=== PATIENT | male | born 1965 | race Caucasian/White ===

== ENCOUNTER 2018-08-25 18:35 | Inpatient (IN) ==
[2018-08-25] MEDS ORDERED: 0.9 % Sodium Chloride 1,000 ML IVC ONE ×2 (19:02→21:11)
--- NOTE | 2018-08-25 19:20 | Emergency Department Note ---
Disposition Clinical Impression: Pulmonary embolism Qualifiers: Pulmonary embolism type: other Chronicity: unspecified Acute cor pulmonale presence: without acute cor pulmonale Qualified Code(s): I26.99 - Other pulmonary embolism without acute cor pulmonale Disposition: Admitted As Inpatient Condition: Good Time of Disposition: 21:31 General Adult HPI - General Chief complaint: ED Shortness of Breath/Dyspnea Stated complaint: "lower chest pain" Time Seen by Provider: 08/25/18 18:47 Source: patient Limitations: no limitations Nursing Notes Reviewed: Yes Vital Signs Reviewed: Yes - History of Present Illness HPI Narrative: 53 year old male presents for "chest cold". Patient states he started getting a cold over 2 weeks ago. Complains of cough productive of sputum for 1.5 weeks, states it alternatively clear, brown, green and bloody. Patient reports sputum sometimes bloody because he has thin nasal membrane that often bleeds and blood tracks down to back of throat. States that he's had cough and phlegm for years but it is more persistent now with the cold. Patient states that last night he started having midback pain. States today, he started having bilateral low rib pain with deep breathing or coughing. He is taking cough drops. States he's not taking NSAIDS or tylenol because he doesn't have pain. Reports that he feels a little better today bc the cough drops and walking improved the chest congestion. States chest congestion worsens with inactivity. Describes feeling heavy in his chest from chest congestion. Admits shortness of breath when coughing or when suppressing a cough. Has trouble sleeping due to coughing. Reports fever, temperature at home was 100.3 before coming to ED. Admits nasal congestion. Denies abdominal pain, nausea/vomiting, diarrhea/constipation, runny nose, sore throat, ear pain, facial pain, headache. Had inguinal hernia surgery 2 weeks ago. Reports medical history of HTN, HLD, and BPH. No history of COPD. Never smoker. Alcohol- 2 drinks a week. Denies luz maria gs. Did not get flu shot this year. Pain Scale: 5 - Related Data Home Medications Medication Instructions Recorded Confirmed Acetaminophen [Tylenol] 500 mg PO Q6HR PRN 08/13/18 08/13/18 Atorvastatin [Lipitor] 10 mg PO HS 08/13/18 08/13/18 Glucosamine HCl/Chondr Grace A Na 1 tab PO DAILY 08/13/18 08/13/18 [[facility] Glucosamine-Chondr Tablet] Lisinopril [Zestril] 10 mg PO DAILY 08/13/18 08/13/18 Previous Rx's Medication Instructions Recorded HYDROcodone/Acet 5/325 mg [[place] 1 tab PO Q4H PRN 5 Days #20 tab 08/13/18 5-325 mg] Allergies Allergy/AdvReac Type Severity Reaction Status Date / Time No Known Allergies Allergy Verified 08/13/18 07:23 All systems ED: reviewed and negative except as stated. Constitutional: Reports: fever. Denies: chills Eyes: Denies: eye pain, eye discharge ENT ED: Denies: ear pain, throat pain Cardiovascular: Reports: chest pain. Denies: palpitations Respiratory: Reports: cough, dyspnea Gastrointestinal: Denies: abdominal pain, nausea Genitourinary: Reports: dysuria. Denies: urgency Musculoskeletal: Reports: back pain. Denies: neck pain Integumentary: Denies: rash, abrasion Neurological: Denies: headache, weakness Past Medical History - Past Medical History Attestation: Yes The following information was validated with the patient. Medical history: Reports: hypertension, kidney stones Psychiatric history: Reports: no psych history - Social History Smoking Status: Never smoker Smokeless Tobacco Status: No Alcohol use: Reports: occasionally Drug use: Reports: none Physical Exam - General Limitations: no limitations General appearance: alert, in no apparent distress - Head Head exam: atraumatic, normocephalic - Eye Eye exam: Present: PERRL, EOMI - ENT ENT exam: normal oropharynx, mucous membranes moist, TM's normal bilaterally, normal external ear exam - Neck Neck exam: Present: normal inspection, full ROM, trachea midline. Absent: lymphadenopathy - Chest Chest inspection: Present: normal inspection. Absent: tenderness (Chest nontender. Lower ribs mildly tender to palpation bilaterally. ) - Respiratory Respiratory exam: Present: normal lung sounds bilaterally. Absent: respiratory distress - Cardiovascular Cardiovascular exam: Present: regular rate, normal rhythm - Abdominal Exam Abdominal exam: Present: soft, normal bowel sounds, other (laparoscopic incision sites are clean, dry and intact. ). Absent: Non-Tender, distention, guarding, rebound, rigidity - Extremities Exam Extremities exam: Present: normal inspection. Absent: tenderness, pedal edema, joint swelling - Back Exam Back exam: Present: normal inspection, tenderness (mild right lumbar tenderness), muscle spasm (right lumbar ) - Neurological Exam Neurological exam: Present: alert, oriented X3 - Psychiatric Psychiatric exam: Present: normal affect, normal mood - Skin Skin exam: Present: warm, dry, intact, normal color Course Course Narrative: 53 year old male with history of chronic cough and sputum production presents for worsened productive cough and "chest congestion". States sputum is sometimes clear, brown, green, or bloody. Complains of heavy chest, midback pain, and pl euritic lower rib pain. Patient recently had surgery. Patient is alert and oriented. Patient is afebrile and tachycardic. Patient is not in respiratory distress. Lungs have good air flow and are clear to auscultation. ENT exam was normal. Lower ribs mildly tender to palpation. Will do cardiac workup. Will check D-dimer. Will provide IVF for tachycardia. Will provide toradol for discomfort. - Reevaluation(s) Reevaluation #1: EKG shows no acute ischemic changes. CBC shows elevated WBC at 15 with neutrophilic predominance. D-dimer elevated at 1758. Will check CTA chest. CXR shows opacities in left basilar and retrocardiac, concerning for pneumonia. Will check lactic acid. Will obtain blood cultures and provide empiric antibiotic therapy with rocephin and zithromax. Time: 20:24 Reevaluation #2: Lactic acid is normal. Checking on patient at 21:14, patient states that pain is improved to 3/10. Tachycardia is resolved. Heart rate is 89. CTA chest shows bilateral lower lobe pulmonary embolus. No right heart strain. Spoke with hospitalist Dr. Vela who recommended starting heparin drip and agreed to admit. Discussed results with patient. Patient and family voiced understanding and a grees with admission. Time: 21:26 Vital Signs Temperature 98.9 F 08/25/18 18:39 Pulse Rate 114 08/25/18 18:39 Respiratory Rate 20 08/25/18 18:39 Blood Pressure 151/71 08/25/18 18:39 O2 Sat by Pulse Oximetry 95 08/25/18 18:39 Temperature 98.9 F 08/25/18 18:57 Pulse Rate 114 08/25/18 18:57 Respiratory Rate 20 08/25/18 18:57 Blood Pressure 151/71 08/25/18 18:57 O2 Sat by Pulse Oximetry 95 08/25/18 18:57 Oxygen Delivery Oxygen Delivery Room Air Medical Decision Making - MDM Narrative Medical decision making narrative: Chest X-Ray 08/25/18 19:02 IMPRESSION: 1. Left basilar/retrocardiac opacities which are concerning for pneumonia given patient history. 2. Mild opacities at the right lung base likely reflect atelectasis. D/ / Merlin Garcia MD / Merlin Garcia MD Interpreting Provider: Merlin Garcia MD - Medical Records Medical records reviewed: Yes I reviewed the patient's medical records. - Lab Data Lab results reviewed: Yes I reviewed the patient's lab results. Result diagrams: 08/25/18 19:02 08/25/18 19:02 Lab Results 08/25/18 08/25/18 08/25/18 Range/Units 19:02 19:02 19:18 WBC 15.0 H (4.3-11.1) K/mcL RBC 4.94 (4.19-5.50) M/mcL Hgb 15.1 (12.9-16.9) g/dL Hct 44.0 (37.5-50.1) % MCV 89.1 (83.0-100.0) fL MCH 30.6 (28.0-33.3) pg MCHC 34.3 (31.6-35.5) g/dL RDW 12.3 (11.5-14.5) % Plt Count 269 (140-400) K/mcL MPV 9.0 L (9.4-12.4) fL Immature Gran % 0.3 (0-4) % Seg Neutrophils % 81.0 % Lymphocytes % 9.7 % Monocytes % 7.8 % Eosinophils % 0.9 % Basophils % 0.3 % Neutrophils # 12.2 H (1.6-8.9) K/mcL Lymphocytes # 1.5 (0.6-4.6) K/mcL Monocytes # 1.2 (0.0-1.3) K/mcL Eosinophils # 0.1 (0.0-0.6) K/mcL Basophils # 0.0 (0.0-0.2) K/mcL D-Dimer 1758 H (0-500) ng/mLFEU Sodium 137 (136-145) mEq/L Potassium 3.6 (3.5-5.1) mEq/L Chloride 105 (98-107) mEq/L Carbon Dioxide 24 (23-29) mEq/L BUN 14 (6-20) mg/dL Creatinine 0.87 (0.70-1.30) mg/dL Est GFR ( Amer) > 60 (> 60) Est GFR (Non-Af Amer) > 60 (> 60) BUN/Creatinine Ratio 16 (6-26) Glucose 129 H (70-105) mg/dL Calculated Osmolality 286 (280-300) Lactic Acid (0.5-2.2) mmol/L Calcium 9.4 (8.6-10.3) mg/dL Troponin I < 0.03 (< 0.04) ng/mL 08/25/18 Range/Units 20:16 WBC (4.3-11.1) K/mcL RBC (4.19-5.50) M/mcL Hgb (12.9-16.9) g/dL Hct (37.5-50.1) % MCV (83.0-100.0) fL MCH (28.0-33.3) pg MCHC (31.6-35.5) g/dL RDW (11.5-14.5) % Plt Count (140-400) K/mcL MPV (9.4-12.4) fL Immature Gran % (0-4) % Seg Neutrophils % % Lymphocytes % % Monocytes % % Eosinophils % % Basophils % % Neutrophils # (1.6-8.9) K/mcL Lymphocytes # (0.6-4.6) K/mcL Monocytes # (0.0-1.3) K/mcL Eosinophils # (0.0-0.6) K/mcL Basophils # (0.0-0.2) K/mcL D-Dimer (0-500) ng/mLFEU Sodium (136-145) mEq/L Potassium (3.5-5.1) mEq/L Chloride (98-107) mEq/L Carbon Dioxide (23-29) mEq/L BUN (6-20) mg/dL Creatinine (0.70-1.30) mg/dL Est GFR ( Amer) (> 60) Est GFR (Non-Af Amer) (> 60) BUN/Creatinine Ratio (6-26) Glucose (70-105) mg/dL Calculated Osmolality (280-300) Lactic Acid 1.2 (0.5-2.2) mmol/L Calcium (8.6-10.3) mg/dL Troponin I (< 0.04) ng/mL - Radiology Data Radiology results reviewed: Yes I reviewed the patient's radiology results. - EKG Data EKG #1 EKG attestation: Yes I reviewed and interpreted this EKG. EKG results narrative: EKG 08/15/18 19:12. Sinus rhythm. Heart rate 101. No ST segment elevation or depression. No significant change from prior EKG 08/06/18. Critical Care Time Critical Care Time: Yes Total Critical Care Time: 35 Attestation: Critical care time 35 minutes managing patient's bilateral pulmonary emboli. Attestation Statement - Attestation Attestation: Patient was seen with resident physician. I reviewed the history, physical, assessment and plan, and agree with the findings. I also personally evaluated this patient and had [id number] time with this patient. 53-year-old male presents to the emergency department with chief complaint of cough and chest pain. Patient has had a cough and congestion for the last week or so. Progressively is gotten worse. He is attempted to take a cough medicine because urinary retention. I therefore is unable to take that. He says he has had some fevers at home as well. The chest pain is a sharp pain generally with deep inspiration or with cough and radiates to the back on the lower left side. Does not have a cardiac history. is concerned he may have COPD though he is not a smoker. Review systems as above remainder negative. Physical exam vital signs are stable he is afebrile. ENT is unremarkable. Heart regular rhythm and rate. Lungs clear. Adamant soft nontender. Chest wall stable nontender. Patient does have some mild tenderness palpation the left lower back. There is mild muscle spasm in that area. Extremities are unremarkable. Neurologically intact. Skin no rashes. Psych normal. ED course. We will check a chest x-ray EKG and some basic labs just to ensure there is no abnormalities in that regard causing his complaints. I think at the end of the day he probably has a bronchitis or pneumonia and some chest wall pain secondary to the coughing for an extended period of time. If everything comes back okay anticipate we will be able to disposition to home. Additionally because little atypical check a d-dimer. That is positive will get a CTA of the chest. If negative effectively ruling out a PE. Hemodynamically he remained stable in the emergency department, he got a shot of Toradol to help with his discomfort. D-dimer was positive which prompted a CTA of the chest. Chest x- ray seems to show an effusion or at least bilateral pneumonia. CTA of the chest however was read by radiology as bilateral PEs without evidence of cardiac strain. Based on these findings, the patient was started on oxygen therapy. Heparinized, and the hospitalist service was notified. They agreed to accept the patient for admission. Hemodynamically he was stable while in the emergency department. He will however require anticoagulation for his PEs. Critical care time was 35 minutes. Agree with resident physician assessment and plan.
[2018-08-25] MEDS ORDERED: Ketorolac 60 MG/2 ML VIAL IM ONE (19:24)
[2018-08-25] MEDS ORDERED: Ketorolac 30 MG/ML VIAL IVP ONE (19:25)
[2018-08-25 19:38] LABS: Basophils % 0.3 %; Eosinophils # 0.1 K/mcL (0.0-0.6); Eosinophils % 0.9 %; Hemoglobin 15.1 g/dL (12.9-16.9); Immature Granulocytes % 0.3 % (0-4); Lymphocytes # 1.5 K/mcL (0.6-4.6); Lymphocytes % 9.7 %; Mean Corpuscular HGB Conc 34.3 g/dL (31.6-35.5); Mean Corpuscular Hemoglobin 30.6 pg (28.0-33.3); Mean Corpuscular Volume 89.1 fL (83.0-100.0); Monocytes # 1.2 K/mcL (0.0-1.3); Monocytes % 7.8 %; Neutrophils # 12.2 K/mcL (1.6-8.9); Platelet Count 269 K/mcL (140-400); Red Blood Count 4.94 M/mcL (4.19-5.50); Red Cell Distribution Width 12.3 % (11.5-14.5)
[2018-08-25] MEDS ORDERED: Isovue-370 500 ML INFUS..BTL IV ONE (19:55)
[2018-08-25 19:57] LABS: BUN/Creatinine Ratio 16 (6-26); Blood Urea Nitrogen 14 mg/dL (6-20); Calcium 9.4 mg/dL (8.6-10.3); Carbon Dioxide 24 mEq/L (23-29); Chloride 105 mEq/L (98-107); Glucose 129 mg/dL (70-105); Osmolality,Calculated 286 (280-300); Potassium 3.6 mEq/L (3.5-5.1); Sodium 137 mEq/L (136-145); eGFR For Non-African Americans > 60 (> 60)
[2018-08-25 19:58] LABS: Troponin I < 0.03 ng/mL (< 0.04)
[2018-08-25] MEDS ORDERED: cefTRIAXone 2,000 MG in Water for inj. (sterile) 20 ML 20 ML IVP SCH (21:00)
[2018-08-25] MEDS: Azithromycin 500 MG in D5% in Water 250 ML IVPB SCH (21:11)
[2018-08-25] MEDS ORDERED: *HR* Heparin 5,000 UNIT/ML VIAL IVP ONE (21:28)
[2018-08-25] MEDS ORDERED: *HR* Heparin 5,000 UNIT/ML VIAL IVP PRN ×2 (21:28)
[2018-08-25] MEDS ORDERED: Heparin 25,000 UNIT/500 ML D5W 25,000 UNIT/500 ML BAG IVC SCH (21:30)
[2018-08-25] MEDS ORDERED: Naloxone 0.4 MG/ML INJ IVP PRN (22:38)
[2018-08-25] MEDS ORDERED: Acetaminophen 325 MG TABLET PO PRN (22:46)
[2018-08-25] MEDS ORDERED: traMADol 50 MG TABLET PO PRN (22:46)
[2018-08-25] MEDS ORDERED: *HR* OxyCODONE Immed Rel 5 MG TABLET PO PRN (22:46)
--- NOTE | 2018-08-25 23:04 | Internal Med History&Physical ---
Date of Encounter: 08/26/18 Time of Encounter: 22:54 Internal Medicine - H&P: HPI Chief complaint: Cough and Chest Pain History of present illness: Mr. Ny is a 53 year old male with a past medical history of hypertension, bladder stone and hyperlipidemia who presents with productive cough with chest pain and dyspnea. Patient states that hes had a productive cough and congestion that has been ongoing for the past couple weeks since his hernia surgery. He thought he may be coming down with some sort of bronchitis. He states the symptoms appeared to be improving on but then again noted worsening productive cough in addition to pleuritic chest pain which was noted earlier today associated with difficulty catching his breath. It was at this time p atient decided to come in and for evaluation. Complains of chest pain described as sharp, aggravated with generally with deep inspiration or with cough and radiates to the back on the lower left side. Does not have a cardiac history. Patient recently had left inguinal hernia repair surgery on the of this month and states that hes spent most of the time in the recumbent position dealing with this cold. Him and his just recently returned from a road trip to [place] and back. Upon arrival Patient was found to be afebrile and tachycardic not in respiratory distress. Given his pleuritic chest pain, a D- dimer was checked and found to be elevated. CTA chest shows bilateral lower lobe pulmonary embolus. No right heart strain. Subsequently started on a heprin drip. Patient has no previous history of clots. Past Med Surg Social Fam HX - Past Medical History Medical history: hypertension, kidney stones Psychiatric history: no psych history - Social History Smoking Status: Never smoker Smokeless Tobacco Status: No Alcohol use: occasionally Drug use: none - Family History Father Adopted: No Living Status: Cause of : DC Hx Family Respiratory Disorders: Yes (Lung cancer, smoker, asbestos) Hx Family Cancer: Yes Mother Hx Family Neurologic Disorders: Yes (Alzheimers) Internal Medicine - H&P: Meds Acetaminophen [Tylenol] 1,000 - 1,500 mg PO DAILY PRN 08/13/18 [History] Atorvastatin [Lipitor] 10 mg PO HS 08/13/18 [History] Glucosamine HCl/Chondr Grace A Na [[facility] Glucosamine-Chondr Tablet] 1 tab PO DAILY 08/13/18 [History] Lisinopril [Zestril] 10 mg PO DAILY 08/13/18 [History] Rivaroxaban [Xarelto] 1 dose PO AD 30 Days #1 pack 08/26/18 [Rx] Tamsulosin [Flomax] 0.8 mg PO DAILY 08/26/18 [History] Allergy/AdvReac Type Severity Reaction Status Date / Time No Known Allergies Allergy Verified 08/26/18 14:23 All Systems PM: A 10-system review of systems was performed and is negative for pertinent findings except as documented above in the HPI. - Constitutional Constitutional: no chills, no fever(s), no night sweats - EENT Eyes: no change in vision, no discharge, no pain, no photophobia Ears: no ear discharge, no ear pain, no tinnitus Nose, mouth and throat: no dysphagia, no nasal discharge, no neck pain, no sore throat - Cardiovascular Cardiovascular ROS IM: no chest pain, no diaphoresis, no dyspnea, no lightheadedness, no palpitations, no syncope - Respiratory Respiratory: no cough, no dyspnea, no wheezing, no excessive phlegm production - Gastrointestinal Gastrointestinal: no abdominal pain, no diarrhea, no hematemesis, no hematochezia, no melena, no nausea, no vomiting - Musculoskeletal Musculoskeletal ROS IM: no numbness, no tingling - Integumentary Integumentary IM: no rash, no unusual bruising - Neurological Neurological ROS: no confusion, no convulsions, no focal weakness, no numbness, no tingling, no tremor(s) - Hematologic/Lymphatic Hematologic/Lymphatic: no easy bruising - Constitutional Vitals: Temp Pulse Resp BP Pulse Ox 98.5 F 81 16 122/77 95 08/25/18 22:30 08/25/18 22:30 08/25/18 22:30 08/25/18 22:30 08/25/18 22:30 Exam: General: Alert and oriented Skin:Normal color, no rash, no lesions. HEENT:EOM, pupils equal, round and reactive. Cardiovascular:Normal S1 & S2, no rubs, murmurs or gallops. No JVD. Pulse regular. Lungs: Clear to auscultation with bibasilar crackles appreciated. Abdomen:Soft, non-tender, no rigidity. Extremities:No deformity, no edema or tenderness, no joint swelling or clubbing. Neurological:Normal cognition and motor skills. Pulses:Carotid and radial pulses normal +2. Rest of the physical exam is non contributory Internal Med - H&P Results - Labs CBC & Chem 7: 08/26/18 00:49 08/26/18 00:49 Labs: Short CBC 08/25/18 Range/Units 19:02 WBC 15.0 H (4.3-11.1) K/mcL Hgb 15.1 (12.9-16.9) g/dL Hct 44.0 (37.5-50.1) % Plt Count 269 (140-400) K/mcL Neutrophils # 12.2 H (1.6-8.9) K/mcL BMP 08/25/18 19:02 Sodium 137 Potassium 3.6 Chloride 105 Carbon Dioxide 24 BUN 14 Creatinine 0.87 Glucose 129 H Calcium 9.4 Cardiac Enzymes 08/25/18 Range/Units 19:02 Troponin I < 0.03 (< 0.04) ng/mL - Impressions ITS Impressions Chest X-Ray 08/25/18 19:02 IMPRESSION: 1. Left basilar/retrocardiac opacities which are concerning for pneumonia given patient history. 2. Mild opacities at the right lung base likely reflect atelectasis. D/ / Merlin Garcia MD / Merlin Garcia MD Interpreting Provider: Merlin Garcia MD Chest CTA 08/25/18 19:55 IMPRESSION: Bilateral lower lobe pulmonary artery filling defects. There is no secondary findings to suggest right heart strain Basilar airspace disease bilaterally, left greater than right. This is nonspecific and may represent atelectasis or pneumonia, however a component of infarct would be difficult to exclude given that there are pulmonary emboli in both lower lobes. Critical results were called by Dr. Yovanny Jacobs to Dr. Caruso On 08/25/2018 at 21:29. D/ / Yovanny Jacobs / Yovanny Jacobs Interpreting Provider: Yovanny Jacobs - Assessment and plan (1) Pulmonary embolism Current Visit: Yes Status: Acute Assessment and plan: Submassive PE likely provoked in the setting of recent surgery for left inguinal hernia repair on August 13. CTA shows bilateral lower lobe pulmonary artery filling defects. Initially presented with tachycardia that improved after receiving fluids. CT imaging and EKG does not show any evidence of right ventricular strain. Patient has been stable from a respiratory standpoint. Continue patient on telemetry Supplemental oxygen as needed Pain control as needed Continue heparin drip Echo Pulm Consult Qualifiers: Pulmonary embolism type: other Chronicity: unspecified Acute cor pulmonale presence: without acute cor pulmonale Qualified Code(s): I26.99 - Other pulmonary embolism without acute cor pulmonale (2) Pneumonia Current Visit: Yes Status: Acute Assessment and plan: Questionable pneumonia in the setting of productive cough. CT scan shows bibasilar airspace disease bilaterally, left greater than right which may represent atelectasis versus pneumonia. Patient was afebrile, tachycardic with an elevated white blood cell count. However, it is difficult to determine how much of this is purely from the PE versus concomitant pneumonia patient currently afebrile, nonseptic in appearance and clinically improving after receiving fluids and antibiotics. Blood cultures as well as urine strep and Legionella antigen ordered. IV fluids We will continue antibiotics for now. Follow-up cultures Qualifiers: Pneumonia type: due to unspecified organism Laterality: unspecified laterality Lung location: unspecified part of lung Qualified Code(s): J18.9 - Pneumonia, unspecified organism (3) Hypertension Current Visit: Yes Status: Acute Assessment and plan: Blood pressure stable. Resume patient's home antihypertensive medications. Qualifiers: Hypertension type: unspecified Qualified Code(s): I10 - Essential (primary) hypertension (4) DVT prophylaxis Current Visit: Yes Status: Acute Assessment and plan: On heparin drip - Time Spent With Patient Total time spent is greater than 50% in coordination of care (as documented) at patient's floor/unit and/or counseling patient:
[2018-08-26 00:59] LABS: Basophils # 0.1 K/mcL (0.0-0.2); Basophils % 0.4 %; Eosinophils # 0.2 K/mcL (0.0-0.6); Eosinophils % 1.7 %; Hematocrit 39.6 % (37.5-50.1); Hemoglobin 13.3 g/dL (12.9-16.9); Immature Granulocytes % 0.4 % (0-4); Lymphocytes # 1.8 K/mcL (0.6-4.6); Lymphocytes % 13.2 %; Mean Corpuscular HGB Conc 33.6 g/dL (31.6-35.5); Mean Corpuscular Hemoglobin 30.2 pg (28.0-33.3); Mean Corpuscular Volume 89.8 fL (83.0-100.0); Monocytes # 1.2 K/mcL (0.0-1.3); Monocytes % 8.9 %; Neutrophils # 10.3 K/mcL (1.6-8.9); Platelet Count 246 K/mcL (140-400); Red Blood Count 4.41 M/mcL (4.19-5.50); Red Cell Distribution Width 12.3 % (11.5-14.5); Segmented Neutrophils % 75.4 %
[2018-08-26 01:07] LABS: INR 1.6; Prothrombin Time 18.2 Seconds (9.4-12.1)
[2018-08-26 01:18] LABS: Alanine Aminotransferase 12 Units/L (7-52); Albumin 3.1 g/dL (3.5-5.7); Albumin/Globulin Ratio 1.2 (1.1-2.2); Alkaline Phosphatase 63 Units/L (34-104); Aspartate Amino Transferase 9 Units/L (13-39); BUN/Creatinine Ratio 16 (6-26); Bilirubin,Total 0.7 mg/dL (0.3-1.0); Blood Urea Nitrogen 13 mg/dL (6-20); Calcium 8.4 mg/dL (8.6-10.3); Carbon Dioxide 22 mEq/L (23-29); Chloride 106 mEq/L (98-107); Globulin 2.6 g/dL (2.4-3.5); Glucose 169 mg/dL (70-105); Osmolality,Calculated 288 (280-300); Potassium 3.6 mEq/L (3.5-5.1); Sodium 137 mEq/L (136-145); Total Protein 5.7 g/dL (6.4-8.9); eGFR For Non-African Americans > 60 (> 60)
[2018-08-26] MEDS: Benzonatate 100 MG CAPSULE PO PRN ×2 (02:32→08:33)
[2018-08-26] MEDS: 0.9 % Sodium Chloride 1,000 ML IVC SCH ×2 (02:48→11:09)
[2018-08-26] MEDS ORDERED: Ketorolac 15 MG/ML VIAL IVP PRN (03:19)
[2018-08-26] MEDS ORDERED: OXYCODONE Oral CONC 10 MG/0.5 ML ORAL.SYG SL PRN (03:20)
[2018-08-26] MEDS: cefTRIAXone 1,000 MG in Water for inj. (sterile) 20 ML 10 ML IVP SCH (08:32)
--- NOTE | 2018-08-26 08:38 | Pulmonology Consult Note ---
<Brit Dowling M - Last Filed: 08/26/18 16:58> Medications and Allergies Acetaminophen [Tylenol] 1,000 - 1,500 mg PO DAILY PRN 08/13/18 [History] Atorvastatin [Lipitor] 10 mg PO HS 08/13/18 [History] Glucosamine HCl/Chondr Grace A Na [[facility] Glucosamine-Chondr Tablet] 1 tab PO DAILY 08/13/18 [History] Lisinopril [Zestril] 10 mg PO DAILY 08/13/18 [History] Rivaroxaban [Xarelto] 1 dose PO AD 30 Days #1 pack 08/26/18 [Rx] Tamsulosin [Flomax] 0.8 mg PO DAILY 08/26/18 [History] Allergy/AdvReac Type Severity Reaction Status Date / Time No Known Allergies Allergy Verified 08/26/18 14:23 All Systems: The remainder of the systems were reviewed and are negative Physical Examination Vital Signs: Vital Signs, Last 4 Hours Temp Pulse Resp BP Pulse Ox 08/26/18 16:32 99.8 F H 86 12 119/75 92 Results - Laboratory Findings CBC and BMP: 08/26/18 00:49 08/26/18 00:49 PT/INR, D-dimer PT 18.2 Seconds (9.4-12.1) H 08/26/18 00:49 D-Dimer 1758 ng/mLFEU (0-500) H 08/25/18 19:18 Abnormal lab findings: Abnormal lab results WBC 13.7 K/mcL (4.3-11.1) H 08/26/18 00:49 MPV 9.0 fL (9.4-12.4) L 08/26/18 00:49 Neutrophils # 10.3 K/mcL (1.6-8.9) H 08/26/18 00:49 PT 18.2 Seconds (9.4-12.1) H 08/26/18 00:49 D-Dimer 1758 ng/mLFEU (0-500) H 08/25/18 19:18 Heparin Anti-Xa, Unfract > 2.00 IU/mL (0.30-0.70) H* 08/26/18 13:11 Carbon Dioxide 22 mEq/L (23-29) L 08/26/18 00:49 Glucose 169 mg/dL (70-105) H 08/26/18 00:49 Calcium 8.4 mg/dL (8.6-10.3) L 08/26/18 00:49 AST 9 Units/L (13-39) L 08/26/18 00:49 Serum Total Protein 5.7 g/dL (6.4-8.9) L 08/26/18 00:49 Albumin 3.1 g/dL (3.5-5.7) L 08/26/18 00:49 - Microbiology Findings Microbiology Findings: Microbiology, Last 48 Hours 08/25/18 20:16 Blood Culture - Preliminary Peripheral Venipuncture Culture is incubating and being continuously m onitored for growth. Final report to follow. 08/25/18 20:16 Blood Culture - Preliminary Peripheral Venipuncture Culture is incubating and being continuously monitored for growth. Final report to follow. - Clinical Findings Intake & Output: Intake & Output 08/26/18 08/26/18 08/26/18 07:59 15:59 23:59 Intake Total 304 / 304 1240 / 1240 240 / 240 Output Total 150 / 150 950 / 950 200 / 200 Balance 154 / 154 290 / 290 40 / 40 Weight 76.5 kg Consult Discharge Plan - Plan Referrals: Brenden Lopez DO [Primary Care Provider] - Prescriptions: Rivaroxaban [Xarelto] 1 dose PO AD 30 Days #1 pack - Attending Attestation I examined this patient and my medical decision-making was reviewed with the Resident Physician. I agree with the documented findings, disposition and treatment plan as described except to the extent set forth below. Patient seen and examined. Labs, radiology, chart personally reviewed. Agree with resident's history and physical, assessment, plan with following comm ents: ANAESTHESIOLOGIST: Patient follows commands, Pulmonary: Acceptable oxygenation and ventilation and patient is on appropriate treatment. There is no evidence of hemodynamic instability and since this is provoked pulmonary embolism he will need at least 3 months of anticoagulation. He can follow-up as needed as outpatient. I doubt to discuss his pneumonia rather could be pulmonary in fact, however the 7 days course of antibiotic would be reasonable. Patient's questions were answered and thank you for consultation. Please call for any questions. Cardiovascular: stable <Diana Delvalle - Last Filed: 08/26/18 20:17> Date of Encounter: 08/26/18 Time of Encounter: 09:15 Assessment and Plan (1) Pulmonary embolism Current Visit: Yes Status: Acute Provoked s/p herniorraphy and cystoitholapaxy 08/13/18 Wells PE score at least 6 points (moderate risk)--PE is most likely dx, HR > 100, surgery within last 4 weeks CXR: opacity of left lung base and right lung base noted CTA chest: BLL pulmonary artery filling defects; no findings to suggest right heart strain; bibasilar airspace disease left > right Heparin gtt initially, now switched to Xarelto SpO2 98% on room air, no respiratory distress Plan: Continue Xarelto 15mg PO BID, duration of anticoagulation at least 3 months Qualifiers: Pulmonary embolism type: other Chronicity: unspecified Acute cor pulmonale presence: without acute cor pulmonale Qualified Code(s): I26.99 - Other pulmonary embolism without acute cor pulmonale (2) Pneumonia Current Visit: Yes Status: Acute Afebrile and VSS White count trending down, 15 --> 13.7 Blood cultures 08/25 show no growth to date Strep pneumoniae and legionella antigens ordered Azithromycin and ceftriaxone Plan: Continue to monitor blood cultures for growth, antibiotics per primary team Qualifiers: Pneumonia type: due to unspecified organism Laterality: unspecified laterality Lung location: unspecified part of lung Qualified Code(s): J18.9 - Pneumonia, unspecified organism History of Present Illness Consult date: 08/26/18 Reason for consult: pulmonary embolism History of present illness: Mr. Ny is a 53 year-old male with past medical history hypertension and hyperlipidemia who is s/p herniorraphy and cystoitholapaxy 08/13/18. He p resented to the emergency department with complaints of productive cough, chest pain, and dyspnea. He reports his cough and congestion with sinus drainage has been going on since his hernia surgery. He thought he had a chest cold, but felt like it was improving 4 days ago. However, 2 days ago he noted pleuritic chest pain in addition to his cough and felt short of breath. He described sharp chest pain as being located along the bottom of his ribs anteriorly that was worse with coughing; he had sharp pain in the back as well that was worse with cough. He still has an occasional cough with some discomfort but both the cough and pleuritic pain have improved significantly. He currently denies associated lower extremity edema, cardiac chest pain, heart palpitations, hemoptysis, dyspnea on exertion, dyspnea at rest. 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 Regarding environmental exposure the patient has pet cats that up-to-date on their immunizations; no birds or other exotic animals; no travel outside of the [facility]. As a child, his father smoked and pt was exposed to secondhand tobacco smoke. Patient denies any personal his tory of lung problems like asthma. He reports his father had lung cancer and as a result of tobacco and asbestos exposure. He denies any personal or first- degree family history of blood clotting problems, lower extremity blood clots, blood clots of the lung. When he arrived to the emergency department he was noted to be afebrile and tachycardic, but not in respiratory distress. Due to pleuritic chest pain a d- dimer was drawn and found to be elevated. Chest CTA positive for bilateral lower lobe pulmonary emboli with associated pulmonary artery filling defects; no evidence right heart strain. He was started on a heparin drip and admitted to the floor. Pulmonology consulted for treatment recommendations of bilateral pulmonary emboli. Past Med Surg Social Fam HX - Past Medical History Medical history: hypertension, kidney stones Psychiatric history: no psych history - Past Surgical History Additional surgical history: hernia sx 08/13/18, stone removal - Social History Smoking Status: Never smoker Smokeless Tobacco Status: No Alcohol use: occasionally Drug use: none - Family History Father Adopted: No Living Status: Cause of : [place] Hx Family Respiratory Disorders: Yes (Lung cancer, smoker, asbestos) Hx Family Cancer: Yes Mother Hx Family Neurologic Disorders: Yes (Alzheimers) All Systems: The remainder of the systems were reviewed and are negative - Constitutional Constitutional: no chills, no fever(s) - Cardiovascular Cardiovascular: no chest pain, no chest pain with activity, no dyspnea, no dyspnea on exertion, no edema, no irregular heart rhythm, no palpitations - Respiratory Respiratory: cough, pain on inspirtation, chest congestion, no dyspnea, no dyspnea on exertion, no wheezing - Gastrointestinal Gastrointestinal: no abdominal pain, no cramping, no nausea - Musculoskeletal Musculoskeletal: back pain (bilateral, with cough, improved) Physical Examination Vital Signs: Vital Signs, Last 4 Hours Temp Pulse Resp BP Pulse Ox 08/26/18 05:17 99.0 F 77 18 118/74 98 General appearance: no acute distress, alert Eyes: nonicteric ENT: oropharynx moist Neck: supple Effort: normal Inspection: normal Auscultation: bilateral: rales (L > R) Cardiovascular: regular rate and rhythm Gastrointestinal: normoactive bowel sounds, soft, non-tender, non-distended Integumentary: normal Extremities: no cyanosis, no edema, pink and warm, pulses normal Musculoskeletal: no deformities normal mental status, non-focal exam, pupils equal and round, CN II-XII normal mood appropriate Results - Laboratory Findings CBC and BMP: 08/26/18 00:49 08/26/18 00:49 PT/INR, D-dimer PT 18.2 Seconds (9.4-12.1) H 08/26/18 00:49 D-Dimer 1758 ng/mLFEU (0-500) H 08/25/18 19:18 Abnormal lab findings: Abnormal lab results WBC 13.7 K/mcL (4.3-11.1) H 08/26/18 00:49 MPV 9.0 fL (9.4-12.4) L 08/26/18 00:49 Neutrophils # 10.3 K/mcL (1.6-8.9) H 08/26/18 00:49 PT 18.2 Seconds (9.4-12.1) H 08/26/18 00:49 D-Dimer 1758 ng/mLFEU (0-500) H 08/25/18 19:18 Carbon Dioxide 22 mEq/L (23-29) L 08/26/18 00:49 Glucose 169 mg/dL (70-105) H 08/26/18 00:49 Calcium 8.4 mg/dL (8.6-10.3) L 08/26/18 00:49 AST 9 Units/L (13-39) L 08/26/18 00:49 Serum Total Protein 5.7 g/dL (6.4-8.9) L 08/26/18 00:49 Albumin 3.1 g/dL (3.5-5.7) L 08/26/18 00:49 - Microbiology Findings Microbiology Findings: Microbiology, Last 48 Hours 08/25/18 20:16 Blood Culture - Preliminary Peripheral Venipuncture Culture is incubating and being continuously monitored for growth. Final report to follow. 08/25/18 20:16 Blood Culture - Preliminary Peripheral Venipuncture Culture is incubating and being continuously monitored for growth. Final report to follow. - Clinical Findings Intake & Output: Intake & Output 08/25/18 08/26/18 08/26/18 23:59 07:59 15:59 Intake Total 304 / 304 Output Total 150 / 150 Balance 154 / 154 Weight 76.204 kg 76.5 kg
[2018-08-26] MEDS: *HR* Rivaroxaban 15 MG TABLET PO SCH ×2 (09:08→16:50)
--- NOTE | 2018-08-26 10:08 | Internal Med Progress Note ---
Hospitalist Progress Note - Encounter Date of Encounter: 08/26/18 Time of Encounter: 10:00 - Exam Vitals: Temp Pulse Resp BP Pulse Ox 98.3 F 84 12 132/77 96 08/26/18 09:39 08/26/18 09:39 08/26/18 09:39 08/26/18 09:39 08/26/18 09:39 Exam: General: Alert and oriented Skin:Normal color, no rash, no lesions. HEENT:EOM, pupils equal, round and reactive. Cardiovascular:Normal S1 & S2, no rubs, murmurs or gallops. No JVD. Pulse regular. Lungs: Clear to auscultation with bibasilar crackles appreciated. Abdomen:Soft, non-tender, no rigidity. Extremities:No deformity, no edema or tenderness, no joint swelling or clubbing. Neurological:Normal cognition and motor skills. Pulses:Carotid and radial pulses normal +2. Rest of the physical exam is non contributory - Assessment and Plan (1) Pulmonary embolism Current Visit: Yes Status: Acute Assessment and Plan: Submassive PE likely provoked in the setting of recent surgery for left inguinal hernia repair on August 13. CTA shows bilateral lower lobe pulmonary artery filling defects. Initially presented with tachycardia that improved after receiving fluids. CT imaging and EKG does not show any evidence of right ventricular strain. Will discontinue heparin drip and start on xarelto (2) Pneumonia Current Visit: Yes Status: Acute Assessment and Plan: CT scan shows bibasilar airspace disease bilaterally, left greater than right which may represent atelectasis versus pneumonia. Patient was afebrile, tachycardic with an elevated white blood cell count. Continue ceftriaxone and azithromycin. Follow up cultures WBC trending down (3) Hypertension Current Visit: Yes Status: Acute Assessment and Plan: Blood pressure stable. Resume patient's home antihypertensive medications. (4) DVT prophylaxis Current Visit: Yes Status: Acute Assessment and Plan: On heparin drip - Time Spent with Patient Total time spent is greater than 50% in coordination of care (as documented) at patient's floor/unit and/or counseling patient: Internal Medicine: Result - Labs CBC & Chem 7: 08/26/18 00:49 08/26/18 00:49 Labs: Short CBC 08/25/18 08/26/18 Range/Units 19:02 00:49 WBC 15.0 H 13.7 H (4.3-11.1) K/mcL Hgb 15.1 13.3 D (12.9-16.9) g/dL Hct 44.0 39.6 (37.5-50.1) % Plt Count 269 246 (140-400) K/mcL Neutrophils # 12.2 H 10.3 H (1.6-8.9) K/mcL BMP 08/25/18 08/26/18 19:02 00:49 Sodium 137 137 Potassium 3.6 3.6 Chloride 105 106 Carbon Dioxide 24 22 L BUN 14 13 Creatinine 0.87 0.80 Glucose 129 H 169 H Calcium 9.4 8.4 L Cardiac Enzymes 08/25/18 08/26/18 08/26/18 Range/Units 19:02 00:49 06:20 Troponin I < 0.03 < 0.03 < 0.03 (< 0.04) ng/mL Liver Function 08/26/18 Range/Units 00:49 Total Bilirubin 0.7 (0.3-1.0) mg/dL AST 9 L (13-39) Units/L ALT 12 (7-52) Units/L Alkaline Phosphatase 63 (34-104) Units/L Albumin 3.1 L (3.5-5.7) g/dL - ABG Interpretation ABG results: PT/INR, D-dimer PT 18.2 Seconds (9.4-12.1) H 08/26/18 00:49 D-Dimer 1758 ng/mLFEU (0-500) H 08/25/18 19:18 - Impressions Impressions Chest X-Ray 08/25/18 19:02 IMPRESSION: 1. Left basilar/retrocardiac opacities which are concerning for pneumonia given patient history. 2. Mild opacities at the right lung base likely reflect atelectasis. D/ / Merlin Garcia MD / Merlin Garcia MD Interpreting Provider: Merlin Garcia MD Chest CTA 08/25/18 19:55 IMPRESSION: Bilateral lower lobe pulmonary artery filling defects. There is no secondary findings to suggest right heart strain Basilar airspace disease bilaterally, left greater than right. This is nonspecific and may represent atelectasis or pneumonia, however a component of infarct would be difficult to exclude given that there are pulmonary emboli in both lower lobes. Critical results were called by Dr. Yovanny Jacobs to Dr. Caruso On 08/25/2018 at 21:29. D/ / Yovanny Jacobs / Yovanny Jacobs Interpreting Provider: Yovanny Jacobs Consult Discharge Plan - Plan Referrals: Brenden Lopez DO [Primary Care Provider] - Prescriptions: Rivaroxaban [Xarelto] 1 dose PO AD 30 Days #1 pack (1) Pulmonary embolism Qualifiers: Pulmonary embolism type: other Chronicity: unspecified Acute cor pulmonale presence: without acute cor pulmonale Qualified Code(s): I26.99 - Other pulmonary embolism without acute cor pulmonale (2) Pneumonia Qualifiers: Pneumonia type: due to unspecified organism Laterality: unspecified laterality Lung location: unspecified part of lung Qualified Code(s): J18.9 - Pneumonia, unspecified organism (3) Hypertension Qualifiers: Hypertension type: unspecified Qualified Code(s): I10 - Essential (primary) hypertension
[2018-08-26] MEDS: Azithromycin 500 MG in D5% in Water 250 ML IVPB SCH (21:48)
[2018-08-27 05:45] LABS: Basophils # 0.1 K/mcL (0.0-0.2); Basophils % 0.5 %; Eosinophils # 0.3 K/mcL (0.0-0.6); Eosinophils % 2.8 %; Hematocrit 36.8 % (37.5-50.1); Immature Granulocytes % 0.3 % (0-4); Lymphocytes # 1.3 K/mcL (0.6-4.6); Lymphocytes % 12.3 %; Mean Corpuscular HGB Conc 33.7 g/dL (31.6-35.5); Mean Corpuscular Hemoglobin 30.2 pg (28.0-33.3); Mean Corpuscular Volume 89.8 fL (83.0-100.0); Mean Platelet Volume 9.2 fL (9.4-12.4); Monocytes # 1.1 K/mcL (0.0-1.3); Monocytes % 10.9 %; Neutrophils # 7.7 K/mcL (1.6-8.9); Platelet Count 250 K/mcL (140-400); Red Cell Distribution Width 12.5 % (11.5-14.5); Segmented Neutrophils % 73.2 %
[2018-08-27 05:49] LABS: Hemoglobin 12.4 g/dL (12.9-16.9)
[2018-08-27 05:56] LABS: BUN/Creatinine Ratio 13 (6-26); Blood Urea Nitrogen 10 mg/dL (6-20); Calcium 8.7 mg/dL (8.6-10.3); Carbon Dioxide 23 mEq/L (23-29); Chloride 110 mEq/L (98-107); Glucose 97 mg/dL (70-105); Osmolality,Calculated 291 (280-300); Potassium 4.1 mEq/L (3.5-5.1); Sodium 141 mEq/L (136-145); eGFR For Non-African Americans > 60 (> 60)
[2018-08-27 05:59] LABS: INR 2.1
[2018-08-27 07:59] LABS: VBG Ionized Calcium 1.23 mmol/L (1.15-1.35)
[2018-08-27] MEDS: cefTRIAXone 1,000 MG in Water for inj. (sterile) 20 ML 10 ML IVP SCH (10:01)
[2018-08-27] MEDS: *HR* Rivaroxaban 15 MG TABLET PO SCH (10:02)
--- NOTE | 2018-08-27 12:35 | Discharge Summary ---
- NOTES TO OUTPATIENT PROVIDER Notes to Outpatient Provider: Follow-up with your primary care doctor within a week of hospital discharge. Orders not resulted at time of discharge: Pending orders 08/25/18 20:16 Culture,Blood [BC] Stat 08/26/18 02:03 Legionella Antigen [RM] Stat S. Pneumoniae Antigen [RM] Stat Date of Encounter: 08/27/18 Time of Encounter: 12:31 - Discharge Diagnosis (1) Pulmonary embolism Priority: Primary Status: Acute Qualifiers: Pulmonary embolism type: other Chronicity: unspecified Acute cor pulmonale presence: without acute cor pulmonale Qualified Code(s): I26.99 - Other pulmonary embolism without acute cor pulmonale (2) Pneumonia Priority: Secondary Status: Resolved Qualifiers: Pneumonia type: due to unspecified organism Laterality: unspecified laterality Lung location: unspecified part of lung Qualified Code(s): J18.9 - Pneumonia, unspecified organism (3) Hypertension Priority: Secondary Status: Chronic Qualifiers: Hypertension type: unspecified Qualified Code(s): I10 - Essential (primary) hypertension (4) DVT prophylaxis Priority: Secondary Status: Chronic Hospital course: Mr. Ny is a 53 year old male past medical history significant for hypertension, bladder stone and hyperlipidemia. Patient presented to the emergency room complaining of productive cough, chest pain and dyspnea. A CTA of the chest was done which revealed bilateral lower lobe pulmonary embolus. Patient acute symptoms have improved, patient reports minimal chest pain, with deep inspiration. Patient was treated empirically with antibiotics for possible Pneumonia seen on CTA of chest. Patient is hemodynamically stable to be discharge home on oral anticoagulant. Patient educated about the need of being on an oral anticoagulant for at least 3 months. Recommended to f/u with his PCP within a week of hospital discharge. - Time Spent with Patient Total time spent providing and/or coordinating discharge services: Less than 30 minutes - Discharge Medications Prescriptions: HYDROcodone/Acet 5/325 mg [[place] 5-325 mg] 1 tab PO Q6H PRN 5 Days #10 tab PRN Reason: Breakthrough Pain Rivaroxaban [Xarelto] 1 dose PO AD 30 Days #1 pack Home Medications: Acetaminophen [Tylenol] 1,000 - 1,500 mg PO DAILY PRN 08/13/18 [History] Atorvastatin [Lipitor] 10 mg PO HS 08/13/18 [History] Glucosamine HCl/Chondr Grace A Na [[facility] Glucosamine-Chondr Tablet] 1 tab PO DAILY 08/13/18 [History] Lisinopril [Zestril] 10 mg PO DAILY 08/13/18 [History] Rivaroxaban [Xarelto] 1 dose PO AD 30 Days #1 pack 08/26/18 [Rx] Tamsulosin [Flomax] 0.8 mg PO DAILY 08/26/18 [History] HYDROcodone/Acet 5/325 mg [[place] 5-325 mg] 1 tab PO Q6H PRN 5 Days #10 tab 08/27/18 [Rx] Allergies/Adverse Reactions: Allergy/AdvReac Type Severity Reaction Status Date / Time No Known Allergies Allergy Verified 08/26/18 14:23 Date of admission: 08/25/18 22:38 Primary care physician: Joseph Lopez DO Consults: 08/26/18 03:17 Consult to Pulmonology [CONS] Routine Consulting Provider: [facility] Reason for Consult: B/L Pulmonary Embolism likely provoked; Currently stable. Evaluation for treatment reccs Call Completed: No - Constitutional Vitals: Temp Pulse Resp BP Pulse Ox 98.3 F 71 16 122/79 94 08/27/18 07:07 08/27/18 07:07 08/27/18 07:07 08/27/18 07:07 08/27/18 07:07 Exam: Vitals: Reviewed General: Well-nourished, in no distress. Skin: Warm and supple. HEENT: Moist mucous membranes. No conjunctivae pallor. Neck: No lymphadenopathy. No JVD. No carotid bruits. No palpable thyroid. Chest: Clear breath sounds auscultation bilaterally. No wheezing, rales rhonchi or crackles. Good air entry and respiratory efforts Heart: Normal S1 & S2; rhythmic. No rubs or murmurs. Abdomen: Non-distended, soft and non-tender to palpation. Extremities: No edema. No calf tenderness. Normal distal pulses. Neurological: Awake, alert and oriented to person, place and time. No focal deficits. Psych: Affect appropriate. - Patient Status Disposition: Home, Self-Care Condition: Good Functional capacity at discharge: independent ambulation Overall status at discharge: patient is progressing back to baseline - Discharge Instructions Follow Up With: Kathya Barth, BOO [Advanced Practice Nurse] - 09/03/18 11:00 am - Diet and Activity Activity: resume usual activities as tolerated Diet: advance to your usual diet, low salt diet
[2018-08-27 13:00] VITALS: BP 136/78
[2018-08-27] MEDS ORDERED: Azithromycin 250 MG TABLET PO SCH (15:00)
--- NOTE | 2018-08-30 19:02 | Electrocardiograph Report ---
[place] [id number] Test Date: 2018-08-25 Pat Name: Scooter Ny Department: [id number] Room: [id number] Gender: M Hardwood Finisher: : 1965 Requested By: Alisha Pascual Order Number: [id number] Reading MD: Zhang Lemus Measurements Intervals [place] Rate: 101 P: 28 CT: 146 QRS: -72 QRSD: 107 T: 57 QT: 328 QTc: 428 Interpretive Statements Sinus tachycardia LAD, consider left anterior fascicular block Low voltage, extremity leads Electronically Signed On 08-30-2018 19:00:47 EDT by Zhang Lemus
== END 2018-08-27 14:25 | disposition home or self-care (01) | DRG 175 ==
LOC: EMEROOARM 18:35 → 3BNU 18:35 → SUATTDRO 22:38 → 2NENU 08-26 00:50
PROVIDERS: ADMIT Internal Medicine; ATTEND Internal Medicine